=== PATIENT | female | born 1930 | race Caucasian/White ===

== ENCOUNTER 2018-10-22 00:23 | Emergency (ER) | payer MEDICARE, OTHER ==
[~2018-10-22] VITALS: Ht 165.1 cm; Wt 68.0 kg
[2018-10-22 00:39] VITALS: Ht 165.1 cm; Wt 68.0 kg
[2018-10-22] MEDS ORDERED: HYDROCODONE/APAP (10/325) TAB PO ONE (01:30)
--- NOTE | 2018-10-22 02:16 | ERD ---
ER Documentation Chief Complaint Chief Complaint trip and fall in parking lot, occiputal hematoma, significant lac LLE HPI This is an 88-year-old female treatment from the parking lot hematoma in the back of her head. Denies loss of consciousness. She also has a skin tear to her left lower extremity. Says her tetanus is up-to-date. No fevers no chills no nausea vomiting. No focal neurologic complaints. ROS All systems reviewed and are negative except as per history of present illness. Allergies Allergies: Coded Allergies: No Known Allergy (Unverified , 10/22/18) PMhx/Soc History of Surgery: Yes (heart valve replacement,cardiac stents, dialysis fistual RUE) Hx Cardiac Disorders: Yes (htn, CAD) Hx Miscellaneous Medical Probl: Yes (dialysis) Hx Alcohol Use: No Hx Substance Use: No Hx Tobacco Use: No (60 yrs ago) Smoking Status: Former smoker Physical Exam Vitals Vital Signs Date Temp Pulse Resp B/P (MAP) Pulse Ox O2 O2 Flow FiO2 Time Delivery Rate 10/22/18 98.2 90 20 131/85 97 00:39 (100) Physical Exam Const: No acute distress Head: Atraumatic Eyes: Normal Conjunctiva ENT: Normal External Ears, Nose and Mouth. Neck: Full range of motion. No meningismus. Resp: Clear to auscultation bilaterally Cardio: Regular rate and rhythm, no murmurs Abd: Soft, non tender, non distended. Normal bowel sounds Skin: 9 cm skin tear noted to right lower extremity with minimal active bleeding. Back: No midline or flank tenderness Ext: No cyanosis, or edema Neur: Awake and alert Psych: Normal Mood and Affect Results 24 hrs Current Medications Medications Dose Sig/Leo Start Time Status Last (Trade) Ordered Route PRN Stop Time Admin Dose Reason Admin 1 tab ONCE ONCE 10/22/18 DC 10/22/18 Acetaminophen PO 01:30 01:19 / 10/22/18 01:31 Hydrocodone Bitart ([place] ()) Procedures/MDM Laceration Repair by me: Anesthesia: 1% lidocaine locally Location: Right tib-fib Tendon/Joint/Nerves: No injury Foreign body: None detected after copious irrigation and exploration Technique: Simple Interrupted Sutures Complexity: No subcutaneous sutures/mucosal repair/edge excision Post Closure Length: 9 cm Patient's bleeding was easily controlled in the department and there is no indication of anemia. No evidence of compartment syndrome, neurologic injury, vascular injury, open joint, tendon laceration, or foreign body. Patient is appropriate for outpatient follow up. 48 hour wound check. Scar minimization instructions given. Medical decision making: This is a very pleasant 88-year-old female comes in with complaints of a lower extremity laceration along with a closed head injury. At this point clinically stable. Advised to follow-up in 2 days for wound check. Follow-up in 5 days for suture removal. Departure Diagnosis: Primary Impression: Fall with significant injury Encounter type: initial encounter Qualified Codes: W19.XXXA - Unspecified fall, initial encounter Condition: Stable Patient Instructions: HEAD INJURY, No Wake-Up (Adult), Laceration, All NORMA WHYTE Oct 22, 2018 02:16
[2018-10-22] MEDS ORDERED: CYCL1DRO BOTH EYES (02:41)
[2018-10-22] MEDS ORDERED: DICY10CA40 PO (02:41)
[2018-10-22] MEDS ORDERED: SIME80TA60 PO (02:41)
[2018-10-22] MEDS ORDERED: BIMA2.5D BOTH EYES (02:41)
[2018-10-22] MEDS ORDERED: BUDE6HFA INHALATION (02:41)
[2018-10-22] MEDS ORDERED: SILD20TA13 PO (02:41)
[2018-10-22] MEDS ORDERED: METO-448 PO (02:41)
[2018-10-22] MEDS ORDERED: ATOR20TA38 PO (02:41)
[2018-10-22] MEDS ORDERED: ERGO2000 PO (02:41)
[2018-10-22] MEDS ORDERED: CYAN500T46 PO (02:41)
[2018-10-22] MEDS ORDERED: ASPI-535 PO (02:41)
[2018-10-22] MEDS ORDERED: ESCI5TAB PO (02:41)
[2018-10-22] MEDS ORDERED: LORA10CA PO (02:41)
[2018-10-22] MEDS ORDERED: APIX2.5T PO (02:41)
[2018-10-22] MEDS ORDERED: CARV6.2579 PO (02:41)
[2018-10-22] MEDS ORDERED: CLON1TAB13 PO (02:41)
[2018-10-22] MEDS ORDERED: NEPH PO (02:41)
[2018-10-22] MEDS ORDERED: DEXL60CA2 PO (02:41)
[2018-10-22 02:50] VITALS: BP 121/86; PULSE 110; RESP 16
== END 2018-10-22 03:00 | disposition home or self-care (01) ==
LOC: E/R 00:23
DX: S81.811A Laceration without foreign body, right lower leg, initial encounter (principal); I10 Essential (primary) hypertension; I25.10 Atherosclerotic heart disease of native coronary artery without angina pectoris; R40.2142 Coma scale, eyes open, spontaneous, at arrival to emergency department; R40.2362 Coma scale, best motor response, obeys commands, at arrival to emergency department; R40.2252 Coma scale, best verbal response, oriented, at arrival to emergency department; W01.0XXA Fall on same level from slipping, tripping and stumbling without subsequent striking against object, initial encounter; Y92.9 Unspecified place or not applicable; Z87.891 Personal history of nicotine dependence; Z98.61 Coronary angioplasty status
CPT/HCPCS: 70450; 72125; 73590